=== PATIENT | female | born 1965 | race American Indian/Alaskan Native ===

== ENCOUNTER 2016-11-04 13:35 | Inpatient (IN) | payer OTHER ==
--- NOTE | 2016-11-04 13:56 | Emergency Department Report ---
Entered by PRASHANT MENDEZ, acting as scribe for RACQUEL SAMUELS NP. Chief Complaint: Nausea/Vomiting/Diarrhea Stated Complaint: N/V/D Time Seen by Provider: 11/04/16 13:47 - HPI History of Present Illness: 51 y/o non-toxic, non ill-appearing female in no acute distress presents to ED c /o nausea, vomiting since yesterday, noting it resolved at night but became worse this morning. Notes associated mild epigastric pain and chills with generalized weakness, but denies fever. - ROS Review of Systems: + nausea, vomiting, generalized weakness, chills, epigastric pain - fever - Exam Vital Signs: Vital Signs 11/04/16 13:39 Temperature 97.4 F L Pulse Rate 72 Respiratory 20 Rate Blood Pressure 189/102 O2 Sat by Pulse 100 Oximetry Physical Exam: Abdomen: Bowel Sounds normal x 4, no abdominal bruits auscultated. Non- distended. Epigastric pain to palpation. MSE screening note: Focused history and physical exam performed. Due to findings the following was ordered: CBC, CMP, UA, lipase, amylase, EKG, troponin ED Disposition for MSE Condition: Stable This documentation as recorded by the scribe,PRASHANT MENDEZ,accurately reflects the service I personally performed and the decisions made by ABRIL tan MARTIN, SON.
[2016-11-04 14:27] LABS: Hematocrit 20.6 % (30.3-42.9); Hemoglobin 6.4 gm/dl (10.1-14.3); Mean Corpuscular HGB Conc 31 % (30-34); Mean Corpuscular Hemoglobin 20 pg (28-32); Mean Corpuscular Volume 64 fl (79-97); Platelet Count 391 K/mm3 (140-440); Red Cell Distribution Width 21.5 % (13.2-15.2); White Blood Count 6.4 K/mm3 (4.5-11.0)
[2016-11-04 14:35] LABS: Amylase 42 units/L (27-131); Lipase 16 units/L (13-60)
[2016-11-04 14:39] LABS: Alanine Aminotransferase 8 units/L (7-56); Albumin 3.9 g/dL (3.9-5); Albumin/Globulin Ratio 1.1 %; Alkaline Phosphatase 52 units/L (35-129); Anion Gap 18 mmol/L; Blood Urea Nitrogen 5 mg/dL (7-17); Calcium 8.9 mg/dL (8.4-10.2); Carbon Dioxide 23 mmol/L (22-30); Chloride 101.6 mmol/L (98-107); Glucose 132 mg/dL (65-100); Potassium 4.2 mmol/L (3.6-5.0); Sodium 138 mmol/L (137-145); Total Protein 7.4 g/dL (6.3-8.2)
[2016-11-04 15:03] LABS: Basophils % (Manual) 0 % (0.0-1.8); Blastocytes % (Manual) 0 %; Eosinophils % (Manual) 0 % (0.0-4.3)
[2016-11-04 15:04] LABS: Anisocytosis 2+; Hypochromasia 2+; Microcytosis 1+; Tear Drop Cells Few
[2016-11-04 15:05] LABS: Diff Status Complete; Large Platelets 2+; Platelet Estimate Cons
[2016-11-04 19:32] LABS: Bilirubin,Urine NEG (Negative); Blood,Urine NEG (Negative); Ketones,Urine NEG (Negative); Leukocyte Esterase,Urine LG (Negative); Mucus,Urine FEW /HPF; Nitrite,Urine NEG (Negative); Protein,Urine <15 mg/dL mg/dL (Negative); Urobilinogen,Urine < 2.0 mg/dL (<2.0)
[2016-11-04] MEDS ORDERED: NACL 0.9% 500 ML 500 ML IV ONE (20:53)
[2016-11-04] MEDS ORDERED: ZOFRAN IV ONE (20:54)
--- NOTE | 2016-11-04 21:15 | Emergency Department Report ---
HPI - General Chief Complaint: Nausea/Vomiting/Diarrhea Time Seen by Provider: 11/04/16 20:36 - HPI HPI: This is a 51-year-old Afro-[place]aur[place] female who presents the emergency department from home with complaint of a 2 day history of nausea, vomiting and some generalized weakness and fatigue. The patient says she's been having a lot of stress in her life lately as she is taking care of her mother who is dealing with advanced dementia. She presents with some very elevated blood pressure but denies any history of hypertension. She has a primary care doctor but has not seen them regarding her symptoms. She has not taken anything for her symptoms prior to presentation. She has a history of [id number] diabetes and says she is compliant with her metformin and glipizide. No recent travel or sick contacts at home. ED Past Medical Hx - Past Medical History Previous Medical History?: Yes Hx Diabetes: Yes (FOR 5 YRS) - Social History Smoking Status: Never Smoker Substance Use Type: Prescribed - Medications Home Medications: Home Medications Medication Instructions Recorded Confirmed Last Taken Type Metformin HCl [Glucophage] 1,000 mg PO BID 07/14/14 11/04/16 11/03/16 History glipiZIDE [glipiZIDE XL] 10 mg PO QDAY 07/14/14 11/04/16 11/03/16 History ED Review of Systems ROS: Stated complaint: N/V/D Other details as noted in HPI Constitutional: weakness. denies: fever Eyes: denies: eye pain, eye discharge, vision change ENT: denies: ear pain, throat pain Respiratory: denies: cough, shortness of breath, wheezing Cardiovascular: denies: chest pain, palpitations Gastrointestinal: nausea, vomiting Genitourinary: denies: urgency, dysuria, discharge Musculoskeletal: denies: back pain, joint swelling, arthralgia Skin: denies: rash, lesions Neurological: denies: headache, numbness Physical Exam - Physical Exam Vital Signs: Vital Signs 11/04/16 13:39 Temperature 97.4 F L Pulse Rate 72 Respiratory 20 Rate Blood Pressure 189/102 O2 Sat by Pulse 100 Oximetry Physical Exam: GENERAL: The patient is well-developed well-nourished. HEENT: Normocephalic. Atraumatic. Extraocular motions are intact. Patient has moist mucous membranes. Pupils equal reactive to light bilaterally. NECK: Supple. Trachea is midline. CHEST/LUNGS: Clear to auscultation. There is no respiratory distress noted. HEART/CARDIOVASCULAR: Regular. There is no tachycardia. There is no gallop rub or murmur. ABDOMEN: Abdomen is soft, nontender. Patient has normal bowel sounds. There is no abdominal distention. SKIN: Skin is warm and dry. NEURO: The patient is awake, alert, and oriented. The patient is cooperative. The patient has no focal neurologic deficits. The patient has normal speech. Cranial nerves II through XII grossly intact. MUSCULOSKELETAL: There is no tenderness or deformity. There is no limitation range of motion. There is no evidence of acute injury. ED Course Vital Signs 11/04/16 13:39 Temperature 97.4 F L Pulse Rate 72 Respiratory 20 Rate Blood Pressure 189/102 O2 Sat by Pulse 100 Oximetry ED Medical Decision Making - Lab Data Result diagrams: 11/04/16 14:04 11/04/16 14:04 - EKG Data -: EKG Interpreted by Wi EKG shows normal: sinus rhythm, axis, intervals, QRS complexes, ST-T waves Rate: normal - EKG Data When compared to previous EKG there are: previous EKG unavailable Interpretation: normal EKG - Medical Decision Making 51 Year old female presents with 2 day history of nausea, vomiting, generalized weakness and fatigue. EKG is normal without ST elevation DC, ischemia or dysrhythmia. Patient's labs show a hemoglobin of 6.4. Patient has no previous history of any anemia. With her symptoms it appears to be symptomatic anemia. She denies any bleeding. She also presented with some very elevated blood pressure. It came down to a more reasonable level without any antihypertensives but still is considered to be hypertension. She will be admitted to the hospital to receive 2 units of packed red blood cells and have further evaluation of her anemia and symptoms. She's been accepted for admission by the hospitalist, Dr. Deleon. - Differential Diagnosis iron deficiency, B12 deficiency, hypoglycemia, viral syndrome Critical Care Time: No Critical care attestation.: If time is entered above; I have spent that time in minutes in the direct care of this critically ill patient, excluding procedure time. ED Disposition Clinical Impression: Hypertensive urgency, Symptomatic anemia Nausea and vomiting Qualifiers: Vomiting type: unspecified Vomiting Intractability: non-intractable Qualified Code(s): R11.2 - Nausea with vomiting, unspecified Disposition: OP ADMITTED IP TO THIS HOSP Is pt being admited?: Yes Condition: Stable Referrals: PRIMARY CARE,MD [Primary Care Provider] - 3-5 Days Time of Disposition: 21:49
[2016-11-04] MEDS ORDERED: APRESOLINE IV ONE (21:50)
[2016-11-04] MEDS ORDERED: MILK OF MAGNESIA PO PRN (23:00)
[2016-11-04] MEDS ORDERED: TYLENOL PO PRN (23:00)
[2016-11-04] MEDS ORDERED: DULCOLAX PR PRN (23:00)
[2016-11-04] MEDS ORDERED: D50W (25GM) IV PRN (23:00)
--- NOTE | 2016-11-04 23:04 | History and Physical Report ---
History of Present Illness Date of examination: 11/04/16 History of present illness: 51-year-old woman with a history of diabetes, menorrhagia comes emergency room with complaints of dizziness, generalized weakness, nausea vomiting 2 weeks. No blood in stool, hematemesis Patient denies chest pain, palpitation, shortness of breath, cough, abdominal pain, hematochezia, dysuria, frequency, focal weakness, dysarthria, fever chills , polydipsia polyuria, hot or cold intolerance, easy bruisability, or rash or bleeding from mucosal membrane, rhinorrhea, epistaxis, earache, tinnitus, blurry vision, eye discharge, anxiety, depression. Other review of systems negative PAST SURGICAL HISTORY: SOCIAL HISTORY: Denies alcohol, tobacco, drugs FAMILY HISTORY: Hypertension Medications and Allergies Allergies Allergy/AdvReac Type Severity Reaction Status Date / Time No Known Allergies Allergy Unverified 07/14/14 11:12 Home Medications Medication Instructions Recorded Confirmed Last Taken Type Metformin HCl [Glucophage] 1,000 mg PO BID 07/14/14 11/04/16 11/03/16 History glipiZIDE [glipiZIDE XL] 10 mg PO QDAY 07/14/14 11/04/16 11/03/16 History Exam - Physical Exam Narrative exam: Gen. appearance: Patient lying in bed, no apparent distress HEENT: Normocephalic, atraumatic, pupils equally round and reactive to light, extraocular movement intact, and no sclericterus,. No JVD or thyromegaly or nodule,neck supple, no carotid bruit ,mucous membranes moist, no exudate or erythema Heart: S1, S2, regular rate and rhythm Lungs: Clear to auscultation bilaterally, breathing comfortable Abdomen: Positive bowel sounds, nontender, nondistended, no organomegaly Extremity: No edema, cyanosis, clubbing Skin: No rash, nodules, warm, dry Neuro: Oriented 3, cranial nerves II-12 intact, speech is fluent, motor and sensory intact Rectal: brown stool. heme negative - Constitutional Vitals: Temp Pulse Resp BP Pulse Ox 97.4 F L 87 20 143/65 100 11/04/16 13:39 11/04/16 22:00 11/04/16 22:00 11/04/16 22:00 11/04/16 22:00 Results - Labs CBC & Chem 7: 11/04/16 14:04 11/04/16 14:04 Labs: Abnormal lab results 11/04/16 11/04/16 11/04/16 Range/Units 14:04 14:04 19:02 RBC 3.20 L (3.65-5.03) M/mm3 Hgb 6.4 L (10.1-14.3) gm/dl Hct 20.6 L (30.3-42.9) % MCV 64 L (79-97) fl MCH 20 L (28-32) pg RDW 21.5 H (13.2-15.2) % Lymphocytes % (Manual) 44.0 H (13.4-35.0) % BUN 5 L (7-17) mg/dL Creatinine 0.5 L (0.7-1.2) mg/dL Glucose 132 H (65-100) mg/dL Urine WBC (Auto) 7.0 H (0.0-6.0) /HPF Crossmatch 11/04/16 Range/Units 21:05 RBC (3.65-5.03) M/mm3 Hgb (10.1-14.3) gm/dl Hct (30.3-42.9) % MCV (79-97) fl MCH (28-32) pg RDW (13.2-15.2) % Lymphocytes % (Manual) (13.4-35.0) % BUN (7-17) mg/dL Creatinine (0.7-1.2) mg/dL Glucose (65-100) mg/dL Urine WBC (Auto) (0.0-6.0) /HPF Crossmatch See Detail - Imaging and Cardiology EKG: image reviewed Assessment and Plan Symptomatic anemia Diabetes type 2 Admits medicine Transfuse 2 units of blood, check iron studies Check fingersticks initiate insulin sliding scale DVT prophylaxis with SCD
[2016-11-05] MEDS ORDERED: NACL 0.9% 500 ML 500 ML ONE (00:06)
[2016-11-05 07:56] LABS: Hematocrit 26.3 % (30.3-42.9); Hemoglobin 8.5 gm/dl (10.1-14.3); Mean Corpuscular HGB Conc 32 % (30-34); Platelet Count 307 K/mm3 (140-440); Red Blood Count 3.82 M/mm3 (3.65-5.03); White Blood Count 6.8 K/mm3 (4.5-11.0)
[2016-11-05 07:57] LABS: Mean Corpuscular Hemoglobin 22 pg (28-32); Mean Corpuscular Volume 69 fl (79-97); Red Cell Distribution Width 26.2 % (13.2-15.2)
[2016-11-05 08:03] LABS: Anion Gap 16 mmol/L; Blood Urea Nitrogen 5 mg/dL (7-17); Calcium 8.7 mg/dL (8.4-10.2); Carbon Dioxide 23 mmol/L (22-30); Chloride 106.1 mmol/L (98-107); Glucose 102 mg/dL (65-100); Potassium 3.8 mmol/L (3.6-5.0); Sodium 141 mmol/L (137-145)
[2016-11-05] MEDS: NOVOLOG SUB-Q SCH ×4 (08:27→23:00)
[2016-11-05 08:53] LABS: Blastocytes % (Manual) 0 %
[2016-11-05 08:54] LABS: Anisocytosis 2+; Diff Status Complete; Elliptocytes Few; Hypochromasia 2+; Microcytosis 1+; Ovalocytes 1+; Polychromasia Few; Tear Drop Cells Few
--- NOTE | 2016-11-05 09:01 | Discharge Summary ---
Providers - Providers Date of Admission: 11/04/16 23:00 Date of discharge: 11/08/16 Attending physician: GLADYS RUBIN Primary care physician: ULYSSES BOOTHE MD Hospitalization Condition: Fair Hospital course: Patient is 51 yo with hypertension.. She presented with menorrhagia, generalized weakness, abdominal pain , nausea and vomiting. her hemoglobin was 6.4. She was admitted transfused 2 Units PRBC, given iv fluids for gastroenteritis. She was about to be discharged when she complained of more abdominal pain. CT Abdomen showed thickening of esophagus. Pelvic Ultrasound showed fibroids. GI was consulted and EGD was done. EGD showed hiatal hernia, gastritis and esophagitis. She was subsequently discharged home on 11/08/16. Total time spent on discharge, 33 mins Disposition: DISCHARGED TO HOME OR SELFCARE - Discharge Diagnoses (1) Menorrhagia Status: Chronic Qualifiers: Menorrahagia type: M (2) Anemia due to chronic blood loss Status: Acute (3) Symptomatic anemia Status: Acute (4) Acute gastroenteritis Status: Acute (5) Gastritis Status: Acute Qualifiers: Gastritis type: G Chronicity: C Gastritis bleeding: G (6) Esophagitis Status: Acute (7) Hiatal hernia Status: Acute (8) Fibroids Status: Acute Qualifiers: Uterine leiomyoma location: U Core Measure Documentation - Palliative Care Palliative Care/ Comfort Measures: Not Applicable - Core Measures Any of the following diagnoses?: none Exam - Physical Exam Narrative exam: Gen appearance: Not in acute distress HEENT: Normocephalic, atraumatic Neck:supple, No JVD Lungs : Clear to auscultation bilaterally,no rales or wheezing Heart :S1-S2 regular, no murmurs, rubs or gallop Abdomen: soft, non tender, non-distended,normal bowel sounds Extremities:no edema no clubbing or cyanosis, Neuro: Awake alert oriented 3, no focal neurologic signs - Constitutional Vitals: Temp Pulse Resp BP Pulse Ox 98.9 F 65 20 154/86 100 11/05/16 07:00 11/05/16 07:00 11/05/16 07:00 11/05/16 07:00 11/05/16 07:00 Plan Activity: no restrictions Diet: low fat, low cholesterol Additional Instructions: 1.Follow up with PCP in 1 week. 2.Follow up with Gynecology in 2-3 days Follow up with: PRIMARY CAREMD [Primary Care Provider] - 3-5 Days Prescriptions: Ciprofloxacin HCl [Ciprofloxacin TAB] 500 mg PO BID #6 tablet Docusate Sodium [Colace] 100 mg PO BID #60 capsule Famotidine [Pepcid] 20 mg PO BID #60 tablet Ferrous Sulfate [Feosol 325 MG tab] 325 mg PO BID #60 tablet HYDROcodone/APAP 5-325 [Holden 5/325] 1 each PO Q6HR PRN #10 tablet PRN Reason: Pain Pantoprazole [Protonix] 40 mg PO QDAY #30 tablet Promethazine [Phenergan TAB] 25 mg PO Q6HR PRN #20 tab PRN Reason: Nausea or vomiting
[2016-11-05] MEDS: GLUCOTROL XL PO SCH (09:57)
[2016-11-05] MEDS ORDERED: GLUCOPHAGE PO SCH (10:00)
--- NOTE | 2016-11-05 10:41 | Admit Criteria Form ---
Admission Criteria Documentation: ANEMIA, IRON DEFICIENCY OR UNSPECIFIED Clinical Indications for Inpatient Care (Place 'X' for any and all applicable criteria): Admission is indicated for ANY ONE of the following(1)(2)(3)(4)(5)(6)(7): [X] I. Inpatient admission required rather than observation care (Also use Anemia, Iron Deficiency or Unspecified: Observation Care guideline as appropriate) because of ANY ONE of the following: [] a) Hemodynamic instability that is severe or persistent [] b) Active bleeding that cannot be rapidly controlled [] c) CVS symptoms (i.e., dyspnea, chest pain, heart failure) that are severe or persistent [] d) Neurologic symptoms (i.e., cognitive impairment, recurrent syncope or near syncope) that are severe or persistent [] e) Cardiac arrhythmias of immediate concern [] f) Acute peripheral ischemia (e.g., pulseless, cool, mottled, or cyanotic extremity) [] g) High-risk low platelet count [] h) Acute renal failure [] i) Ongoing transfusion for blood loss (greater than 2 units) [] j) IV fluid to replace significant ongoing (eg, >24 hours) losses (> 3 L/m2 per day) [] k) Pulmonary artery catheter monitoring [] l) Supplemental oxygen or respiratory treatments for over 24 hours that are performable only in acute inpatient setting [] m) Immediate inpatient surgery [X] n) Other condition, treatment or monitoring requiring inpatient admission [] II Active massive hemorrhage [] III. Active hemolysis with rapidly progressive anemia [A](6) Extended stay beyond goal length of stay may be needed for (17)(18) []a) Diagnosed cause of anemia requiring longer hospitalization (eg, active GI bleeding, immune hemolysis requiring electrophoresis, complications of malignancy requiring acute care []b) Continued emergent anemia indicators (23) []c) Transfusion reactions []d) Associated leukopenia or thrombocytopenia needing inpatient care []e) Active comorbidities (eg, renal failure, heart failure) The original [facility] Care Guidelines content created by [facility] Care Guidelines has been revised. The portions of the content which have been revised are identified through the use of italic text or in bold. [facility] Guidelines has neither reviewed nor approved the modified material. All other unmodified content is copyright [facility] Care Guidelines. Please see references footnoted in the original [facility] edition 2016 Admission Criteria Met: Yes
[2016-11-05] MEDS ORDERED: MORPHINE IV ONE (11:10)
[2016-11-05] MEDS: LEVAQUIN 500MG/100ML 500 MG/100 ML BAG IV SCH (13:45)
[2016-11-05 14:48] LABS: Iron 60 ug/dL (37-170); Total Iron Binding Capacity 332 mcg/dL (250-450)
[2016-11-05] MEDS: PROTONIX IV SCH ×2 (15:11→21:27)
--- NOTE | 2016-11-05 15:25 | Progress Note ---
Assessment and Plan Assessment and plan: Acute gastroenteritis. Started on iv fluids. Morphine iv prn Anemia likely due to chronic blood loss from Menorrhagia. To see Gyne as outpatient.s/p 2 Units PRBC transfused, Hgb now Menorrhagia. US pelvis, transvaginal US ordered, not yet done. UTI. Levaquin iv Diabetes mellitus type 2. Fingerstick Qac and HS - Patient Problems (1) Menorrhagia Current Visit: Yes Status: Acute Qualifiers: Menorrahagia type: M (2) Anemia due to chronic blood loss Current Visit: Yes Status: Acute (3) Symptomatic anemia Current Visit: Yes Status: Acute History Interval history: Abdominal pain, nausea and vomiting, menorrhagia Hospitalist Physical - Physical exam Narrative exam: Gen appearance: Not in acute distress HEENT: Normocephalic, atraumatic Neck:supple Lungs : Clear to auscultation bilaterally, Heart :S1-S2 regular, no murmurs, rubs or gallop Abdomen: soft, mild tender, non-distended,normal bowel sounds Extremities:no edema no clubbing or cyanosis, Neuro: Awake alert oriented 3, no focal neurologic signs - Constitutional Vitals: Temp Pulse Resp BP Pulse Ox 98.9 F 65 20 154/86 100 11/05/16 07:00 11/05/16 07:00 11/05/16 07:00 11/05/16 07:00 11/05/16 07:00 Results - Labs CBC & Chem 7: 11/05/16 19:52 11/05/16 07:24 Labs: Laboratory Last Values WBC 6.8 K/mm3 (4.5-11.0) 11/05/16 07:24 RBC 3.82 M/mm3 (3.65-5.03) 11/05/16 07:24 Hgb 8.5 gm/dl (10.1-14.3) L 11/05/16 07:24 Hct 26.3 % (30.3-42.9) L 11/05/16 07:24 MCV 69 fl (79-97) L D 11/05/16 07:24 MCH 22 pg (28-32) L 11/05/16 07:24 MCHC 32 % (30-34) 11/05/16 07:24 RDW 26.2 % (13.2-15.2) H 11/05/16 07:24 Plt Count 307 K/mm3 (140-440) 11/05/16 07:24 Add Manual Diff Complete 11/05/16 07:24 Total Counted 100 11/05/16 07:24 Seg Neuts % (Manual) 56.0 % (40.0-70.0) 11/05/16 07:24 Band Neutrophils % 0 % 11/05/16 07:24 Lymphocytes % (Manual) 38.0 % (13.4-35.0) H 11/05/16 07:24 Reactive Lymphs % (Man) 0 % 11/05/16 07:24 Monocytes % (Manual) 4.0 % (0.0-7.3) 11/05/16 07:24 Eosinophils % (Manual) 1.0 % (0.0-4.3) 11/05/16 07:24 Basophils % (Manual) 1.0 % (0.0-1.8) 11/05/16 07:24 Metamyelocytes % 0 % 11/05/16 07:24 Myelocytes % 0 % 11/05/16 07:24 Promyelocytes % 0 % 11/05/16 07:24 Blast Cells % 0 % 11/05/16 07:24 Nucleated RBC % Not Reportable 11/05/16 07:24 Seg Neutrophils # Man 3.8 K/mm3 (1.8-7.7) 11/05/16 07:24 Band Neutrophils # 0.0 K/mm3 11/05/16 07:24 Lymphocytes # (Manual) 2.6 K/mm3 (1.2-5.4) 11/05/16 07:24 Abs React Lymphs (Man) 0.0 K/mm3 11/05/16 07:24 Monocytes # (Manual) 0.3 K/mm3 (0.0-0.8) 11/05/16 07:24 Eosinophils # (Manual) 0.1 K/mm3 (0.0-0.4) 11/05/16 07:24 Basophils # (Manual) 0.1 K/mm3 (0.0-0.1) 11/05/16 07:24 Metamyelocytes # 0.0 K/mm3 11/05/16 07:24 Myelocytes # 0.0 K/mm3 11/05/16 07:24 Promyelocytes # 0.0 K/mm3 11/05/16 07:24 Blast Cells # 0.0 K/mm3 11/05/16 07:24 WBC Morphology Not Reportable 11/05/16 07:24 Hypersegmented Neuts Not Reportable 11/05/16 07:24 Hyposegmented Neuts Not Reportable 11/05/16 07:24 Hypogranular Neuts Not Reportable 11/05/16 07:24 Smudge Cells Not Reportable 11/05/16 07:24 Toxic Granulation Not Reportable 11/05/16 07:24 Toxic Vacuolation Not Reportable 11/05/16 07:24 Dohle Bodies Not Reportable 11/05/16 07:24 Pelger-Huet Anomaly Not Reportable 11/05/16 07:24 Harini Rods Not Reportable 11/05/16 07:24 Platelet Estimate Appears normal 11/05/16 07:24 Clumped Platelets Not Reportable 11/05/16 07:24 Plt Clumps, EDTA Not Reportable 11/05/16 07:24 Large Platelets Not Reportable 11/05/16 07:24 Giant Platelets Not Reportable 11/05/16 07:24 Platelet Satelliting Not Reportable 11/05/16 07:24 Plt Morphology Comment Not Reportable 11/05/16 07:24 RBC Morphology Not Reportable 11/05/16 07:24 Dimorphic RBCs Yes 11/05/16 07:24 Polychromasia Few 11/05/16 07:24 Hypochromasia 2+ 11/05/16 07:24 Poikilocytosis Not Reportable 11/05/16 07:24 Anisocytosis 2+ 11/05/16 07:24 Microcytosis 1+ 11/05/16 07:24 Macrocytosis Not Reportable 11/05/16 07:24 Spherocytes Not Reportable 11/05/16 07:24 Pappenheimer Bodies Not Reportable 11/05/16 07:24 Sickle Cells Not Reportable 11/05/16 07:24 Target Cells Not Reportable 11/05/16 07:24 Tear Drop Cells Few 11/05/16 07:24 Ovalocytes 1+ 11/05/16 07:24 Helmet Cells Not Reportable 11/05/16 07:24 [place] Bodies Not Reportable 11/05/16 07:24 [place] Rings Not Reportable 11/05/16 07:24 Regis Cells Not Reportable 11/05/16 07:24 Bite Cells Not Reportable 11/05/16 07:24 Crenated Cell Not Reportable 11/05/16 07:24 Elliptocytes Few 11/05/16 07:24 Acanthocytes (Spur) Not Reportable 11/05/16 07:24 Rouleaux Not Reportable 11/05/16 07:24 Hemoglobin C Crystals Not Reportable 11/05/16 07:24 Schistocytes Not Reportable 11/05/16 07:24 Malaria parasites Not Reportable 11/05/16 07:24 Adrian Bodies Not Reportable 11/05/16 07:24 Hem Pathologist Commnt No 11/05/16 07:24 Sodium 141 mmol/L (137-145) 11/05/16 07:24 Potassium 3.8 mmol/L (3.6-5.0) 11/05/16 07:24 Chloride 106.1 mmol/L (98-107) 11/05/16 07:24 Carbon Dioxide 23 mmol/L (22-30) 11/05/16 07:24 Anion Gap 16 mmol/L 11/05/16 07:24 BUN 5 mg/dL (7-17) L 11/05/16 07:24 Creatinine 0.5 mg/dL (0.7-1.2) L 11/05/16 07:24 Estimated GFR > 60 ml/min 11/05/16 07:24 BUN/Creatinine Ratio 10.00 % 11/05/16 07:24 Glucose 102 mg/dL (65-100) H 11/05/16 07:24 POC Glucose 130 (70-105) H 11/05/16 11:55 Hemoglobin A1c 7.5 % (4-6) H 11/05/16 13:41 Calcium 8.7 mg/dL (8.4-10.2) 11/05/16 07:24 Iron 60 ug/dL (37-170) 11/05/16 13:41 TIBC 332 mcg/dL (250-450) 11/05/16 13:41 Ferritin 5.6 ng/mL (13.0-400.0) L 11/05/16 13:41 Total Bilirubin 0.30 mg/dL (0.1-1.2) 11/04/16 14:04 AST 12 units/L (5-40) 11/04/16 14:04 ALT 8 units/L (7-56) 11/04/16 14:04 Alkaline Phosphatase 52 units/L (35-129) 11/04/16 14:04 Troponin T < 0.010 ng/mL (0.00-0.029) 11/04/16 14:04 Total Protein 7.4 g/dL (6.3-8.2) 11/04/16 14:04 Albumin 3.9 g/dL (3.9-5) 11/04/16 14:04 Albumin/Globulin Ratio 1.1 % 11/04/16 14:04 Amylase 42 units/L (27-131) 11/04/16 14:04 Lipase 16 units/L (13-60) 11/04/16 14:04 Urine Color Yellow (Yellow) 11/04/16 19:02 Urine Turbidity Clear (Clear) 11/04/16 19:02 Urine pH 7.0 (5.0-7.0) 11/04/16 19:02 Ur Specific [place] 1.010 (1.003-1.030) 11/04/16 19:02 Urine Protein <15 mg/dl mg/dL (Negative) 11/04/16 19:02 Urine Glucose (UA) Neg mg/dL (Negative) 11/04/16 19:02 Urine Ketones Neg mg/dL (Negative) 11/04/16 19:02 Urine Blood Neg (Negative) 11/04/16 19:02 Urine Nitrite Neg (Negative) 11/04/16 19:02 Urine Bilirubin Neg (Negative) 11/04/16 19:02 Urine Urobilinogen < 2.0 mg/dL (<2.0) 11/04/16 19:02 Ur Leukocyte Esterase Lg (Negative) 11/04/16 19:02 Urine WBC (Auto) 7.0 /HPF (0.0-6.0) H 11/04/16 19:02 Urine RBC (Auto) 2.0 /HPF (0.0-6.0) 11/04/16 19:02 U Epithel Cells (Auto) 1.0 /HPF (0-13.0) 11/04/16 19:02 Urine Mucus Few /HPF 11/04/16 19:02 Blood Type O POSITIVE 11/04/16 21:05 Antibody Screen TNR 11/04/16 21:05 UZIEL Antibody Screen Negative 11/04/16 21:05 Crossmatch See Detail 11/04/16 21:05
[2016-11-05] MEDS ORDERED: NACL ONE (15:32)
--- NOTE | 2016-11-05 16:15 | Cat Scan Report ---
CT ABDOMEN AND PELVIS WITH CONTRAST INDICATION: Abdominal pain. COMPARISON: None similar. FINDINGS: Abdomen and pelvis CT performed following oral contrast and intravenous administration of 100 cc of Omnipaque 300. LUNG BASES: Top normal heart size. Minimal bibasilar effusions, right slightly greater than left as on axial image 89, series 2. Nonspecific distal esophageal wall prominence/thickening, not excluded for gastroesophageal reflux and/or hiatal hernia, amongst others. ABDOMEN: Cholecystectomy clips. Left hepatic lobe tip extends well into the left upper quadrant. Liver, spleen, pancreas, adrenals, nonaneurysmal abdominal aorta, IVC and kidneys otherwise within normal limits bilaterally without hydronephrosis, ascites or size significant adenopathy. Opacified GI tract nonobstructive. Normal appendix. Liquid stool in the ascending colon incidentally noted. PELVIS: Slightly heterogeneous, prominent uterus, approximately 13.5 cm in length. Pelvic ultrasound may help further evaluate, if warranted. Unremarkable urinary bladder and the rectosigmoid. Approximately 2.2 cm right adnexal/ovarian follicular cyst. Small deep pelvic/presacral fluid measuring 18 HU with at least 2 small intrinsic nonspecific densities. No significant adenopathy. Mild multilevel degenerative spurring, more so lower thoracic. L5-S1 facet arthropathy. Bilateral SI joint degenerative spurring and mild sclerosis as well. CONCLUSION: Various incidental findings, including minimal bibasilar pleural effusions, cholecystectomy, ascending colon liquid stool/possibly gastroenteritis, prominent/enlarged uterus and small deep pelvic/presacral fluid, amongst others, as described. Please correlate. Thank you for the opportunity to participate in this patient's care.
[2016-11-05] MEDS ORDERED: MORPHINE IV PRN (17:45)
[2016-11-05 21:21] LABS: Hematocrit 27.7 % (30.3-42.9); Hemoglobin 8.7 gm/dl (10.1-14.3)
[2016-11-05] MEDS: ZOFRAN IV PRN (21:27)
[2016-11-05] MEDS: NACL 0.9% 1000 ML 1,000 ML IV SCH (21:30)
[2016-11-06] MEDS: NOVOLOG SUB-Q SCH ×4 (07:43→22:30)
--- NOTE | 2016-11-06 08:52 | Event Note ---
Date: 11/06/16 patient with nausea, vomiting, abdominal pain. Was to discharge today, now vomited again this morning. Will consult GI
[2016-11-06] MEDS: LEVAQUIN 500MG/100ML 500 MG/100 ML BAG IV SCH (10:12)
[2016-11-06] MEDS: PROTONIX PO SCH ×2 (10:12→22:29)
[2016-11-06] MEDS: GLUCOTROL XL PO SCH (10:12)
[2016-11-06] MEDS: ZOFRAN IV PRN (10:19)
[2016-11-06] MEDS: NACL 0.9% 1000 ML 1,000 ML IV SCH (10:22)
--- NOTE | 2016-11-06 11:59 | Progress Note ---
Assessment and Plan Assessment and plan: Acute gastroenteritis. Continue iv fluids. Morphine iv prn Nausea and Vomiting possibly from GERD, esophagitis, gastroenteritis. Consult GI to evaluate since vomited again today Anemia likely due to chronic blood loss from Menorrhagia. To see Gyne as outpatient.s/p 2 Units PRBC transfused, Hgb now 8.7 Uterine fibroids. Multiple. To follow with Gyne as outpatient. Menorrhagia. US pelvis, transvaginal shows multiple fibroids. UTI. Continue Levaquin iv Diabetes mellitus type 2. Fingerstick Qac and HS - Patient Problems (1) Menorrhagia Current Visit: Yes Status: Acute Qualifiers: Menorrahagia type: M (2) Anemia due to chronic blood loss Current Visit: Yes Status: Acute (3) Symptomatic anemia Current Visit: Yes Status: Acute History Interval history: Abdominal pain, still having nausea and vomiting, menorrhagia Hospitalist Physical - Physical exam Narrative exam: Gen appearance: Not in acute distress HEENT: Normocephalic, atraumatic Neck:supple Lungs : Clear to auscultation bilaterally, Heart :S1-S2 regular, no murmurs, rubs or gallop Abdomen: soft, mild epigastric tender, non-distended,normal bowel sounds Extremities:no edema no clubbing or cyanosis, Neuro: Awake alert oriented 3, no focal neurologic signs - Constitutional Vitals: Temp Pulse Resp BP Pulse Ox 99.4 F 61 16 137/65 99 11/06/16 07:25 11/06/16 07:25 11/06/16 07:25 11/06/16 07:25 11/06/16 07:25 Results - Labs CBC & Chem 7: 11/05/16 19:52 11/05/16 07:24 Labs: Laboratory Last Values WBC 6.8 K/mm3 (4.5-11.0) 11/05/16 07:24 RBC 3.82 M/mm3 (3.65-5.03) 11/05/16 07:24 Hgb 8.7 gm/dl (10.1-14.3) L 11/05/16 19:52 Hct 27.7 % (30.3-42.9) L 11/05/16 19:52 MCV 69 fl (79-97) L D 11/05/16 07:24 MCH 22 pg (28-32) L 11/05/16 07:24 MCHC 32 % (30-34) 11/05/16 07:24 RDW 26.2 % (13.2-15.2) H 11/05/16 07:24 Plt Count 307 K/mm3 (140-440) 11/05/16 07:24 Add Manual Diff Complete 11/05/16 07:24 Total Counted 100 11/05/16 07:24 Seg Neuts % (Manual) 56.0 % (40.0-70.0) 11/05/16 07:24 Band Neutrophils % 0 % 11/05/16 07:24 Lymphocytes % (Manual) 38.0 % (13.4-35.0) H 11/05/16 07:24 Reactive Lymphs % (Man) 0 % 11/05/16 07:24 Monocytes % (Manual) 4.0 % (0.0-7.3) 11/05/16 07:24 Eosinophils % (Manual) 1.0 % (0.0-4.3) 11/05/16 07:24 Basophils % (Manual) 1.0 % (0.0-1.8) 11/05/16 07:24 Metamyelocytes % 0 % 11/05/16 07:24 Myelocytes % 0 % 11/05/16 07:24 Promyelocytes % 0 % 11/05/16 07:24 Blast Cells % 0 % 11/05/16 07:24 Nucleated RBC % Not Reportable 11/05/16 07:24 Seg Neutrophils # Man 3.8 K/mm3 (1.8-7.7) 11/05/16 07:24 Band Neutrophils # 0.0 K/mm3 11/05/16 07:24 Lymphocytes # (Manual) 2.6 K/mm3 (1.2-5.4) 11/05/16 07:24 Abs React Lymphs (Man) 0.0 K/mm3 11/05/16 07:24 Monocytes # (Manual) 0.3 K/mm3 (0.0-0.8) 11/05/16 07:24 Eosinophils # (Manual) 0.1 K/mm3 (0.0-0.4) 11/05/16 07:24 Basophils # (Manual) 0.1 K/mm3 (0.0-0.1) 11/05/16 07:24 Metamyelocytes # 0.0 K/mm3 11/05/16 07:24 Myelocytes # 0.0 K/mm3 11/05/16 07:24 Promyelocytes # 0.0 K/mm3 11/05/16 07:24 Blast Cells # 0.0 K/mm3 11/05/16 07:24 WBC Morphology Not Reportable 11/05/16 07:24 Hypersegmented Neuts Not Reportable 11/05/16 07:24 Hyposegmented Neuts Not Reportable 11/05/16 07:24 Hypogranular Neuts Not Reportable 11/05/16 07:24 Smudge Cells Not Reportable 11/05/16 07:24 Toxic Granulation Not Reportable 11/05/16 07:24 Toxic Vacuolation Not Reportable 11/05/16 07:24 Dohle Bodies Not Reportable 11/05/16 07:24 Pelger-Huet Anomaly Not Reportable 11/05/16 07:24 Harini Rods Not Reportable 11/05/16 07:24 Platelet Estimate Appears normal 11/05/16 07:24 Clumped Platelets Not Reportable 11/05/16 07:24 Plt Clumps, EDTA Not Reportable 11/05/16 07:24 Large Platelets Not Reportable 11/05/16 07:24 Giant Platelets Not Reportable 11/05/16 07:24 Platelet Satelliting Not Reportable 11/05/16 07:24 Plt Morphology Comment Not Reportable 11/05/16 07:24 RBC Morphology Not Reportable 11/05/16 07:24 Dimorphic RBCs Yes 11/05/16 07:24 Polychromasia Few 11/05/16 07:24 Hypochromasia 2+ 11/05/16 07:24 Poikilocytosis Not Reportable 11/05/16 07:24 Anisocytosis 2+ 11/05/16 07:24 Microcytosis 1+ 11/05/16 07:24 Macrocytosis Not Reportable 11/05/16 07:24 Spherocytes Not Reportable 11/05/16 07:24 Pappenheimer Bodies Not Reportable 11/05/16 07:24 Sickle Cells Not Reportable 11/05/16 07:24 Target Cells Not Reportable 11/05/16 07:24 Tear Drop Cells Few 11/05/16 07:24 Ovalocytes 1+ 11/05/16 07:24 Helmet Cells Not Reportable 11/05/16 07:24 [place] Bodies Not Reportable 11/05/16 07:24 [place] Rings Not Reportable 11/05/16 07:24 Regis Cells Not Reportable 11/05/16 07:24 Bite Cells Not Reportable 11/05/16 07:24 Crenated Cell Not Reportable 11/05/16 07:24 Elliptocytes Few 11/05/16 07:24 Acanthocytes (Spur) Not Reportable 11/05/16 07:24 Rouleaux Not Reportable 11/05/16 07:24 Hemoglobin C Crystals Not Reportable 11/05/16 07:24 Schistocytes Not Reportable 11/05/16 07:24 Malaria parasites Not Reportable 11/05/16 07:24 Adrian Bodies Not Reportable 11/05/16 07:24 Hem Pathologist Commnt No 11/05/16 07:24 Sodium 141 mmol/L (137-145) 11/05/16 07:24 Potassium 3.8 mmol/L (3.6-5.0) 11/05/16 07:24 Chloride 106.1 mmol/L (98-107) 11/05/16 07:24 Carbon Dioxide 23 mmol/L (22-30) 11/05/16 07:24 Anion Gap 16 mmol/L 11/05/16 07:24 BUN 5 mg/dL (7-17) L 11/05/16 07:24 Creatinine 0.5 mg/dL (0.7-1.2) L 11/05/16 07:24 Estimated GFR > 60 ml/min 11/05/16 07:24 BUN/Creatinine Ratio 10.00 % 11/05/16 07:24 Glucose 102 mg/dL (65-100) H 11/05/16 07:24 POC Glucose 115 (70-105) H 11/06/16 11:46 Hemoglobin A1c 7.5 % (4-6) H 11/05/16 13:41 Calcium 8.7 mg/dL (8.4-10.2) 11/05/16 07:24 Iron 60 ug/dL (37-170) 11/05/16 13:41 TIBC 332 mcg/dL (250-450) 11/05/16 13:41 Ferritin 5.6 ng/mL (13.0-400.0) L 11/05/16 13:41 Total Bilirubin 0.30 mg/dL (0.1-1.2) 11/04/16 14:04 AST 12 units/L (5-40) 11/04/16 14:04 ALT 8 units/L (7-56) 11/04/16 14:04 Alkaline Phosphatase 52 units/L (35-129) 11/04/16 14:04 Troponin T < 0.010 ng/mL (0.00-0.029) 11/04/16 14:04 Total Protein 7.4 g/dL (6.3-8.2) 11/04/16 14:04 Albumin 3.9 g/dL (3.9-5) 11/04/16 14:04 Albumin/Globulin Ratio 1.1 % 11/04/16 14:04 Amylase 42 units/L (27-131) 11/04/16 14:04 Lipase 16 units/L (13-60) 11/04/16 14:04 Urine Color Yellow (Yellow) 11/04/16 19:02 Urine Turbidity Clear (Clear) 11/04/16 19:02 Urine pH 7.0 (5.0-7.0) 11/04/16 19:02 Ur Specific [place] 1.010 (1.003-1.030) 11/04/16 19:02 Urine Protein <15 mg/dl mg/dL (Negative) 11/04/16 19:02 Urine Glucose (UA) Neg mg/dL (Negative) 11/04/16 19:02 Urine Ketones Neg mg/dL (Negative) 11/04/16 19:02 Urine Blood Neg (Negative) 11/04/16 19:02 Urine Nitrite Neg (Negative) 11/04/16 19:02 Urine Bilirubin Neg (Negative) 11/04/16 19:02 Urine Urobilinogen < 2.0 mg/dL (<2.0) 11/04/16 19:02 Ur Leukocyte Esterase Lg (Negative) 11/04/16 19:02 Urine WBC (Auto) 7.0 /HPF (0.0-6.0) H 11/04/16 19:02 Urine RBC (Auto) 2.0 /HPF (0.0-6.0) 11/04/16 19:02 U Epithel Cells (Auto) 1.0 /HPF (0-13.0) 11/04/16 19:02 Urine Mucus Few /HPF 11/04/16 19:02 Blood Type O POSITIVE 11/04/16 21:05 Antibody Screen TNR 11/04/16 21:05 UZIEL Antibody Screen Negative 11/04/16 21:05 Crossmatch See Detail 11/04/16 21:05
--- NOTE | 2016-11-06 16:01 | Event Note ---
Date: 11/06/16 GI consultation was requested for persistent N/V. Patient was off the floor and could not be evaluated. Chart reviewed. Diabetic gastroparesis, PUD, partial GOO are in the differential diagnosis. May need endoscopy. Patient will be held NPO to keep options open until she can be formally evaluated tomorrow.
--- NOTE | 2016-11-06 16:38 | Ultrasound Report ---
Transvaginal and transabdominal pelvic ultrasound. History: Dysfunctional uterine bleeding. Findings: The uterus measures 12.5 x 6.6 x 8.8 cm. There are multiple hypoechoic uterine masses, the largest of which measures 2.6 cm in maximum dimension located in the body of the uterus. This appears to be submucosal. At least 3 additional smaller uterine masses are seen. The endometrial echo is thickened at 2.1 cm. The left ovary is not identified, but no adnexal masses are seen on the left. There is a 2.1 x 1.6 x 2.5 cm round complex region in the right ovary. No fluid is seen within the cul-de-sac. Impression: Multiple uterine fibroids in an enlarged uterus. 2. Complex cyst in the right ovary.
[2016-11-06] MEDS: REGLAN PO SCH ×2 (17:31→22:22)
[2016-11-07] MEDS: NACL 0.9% 1000 ML 1,000 ML IV SCH (06:31)
[2016-11-07] MEDS: NOVOLOG SUB-Q SCH ×4 (08:52→23:36)
[2016-11-07] MEDS: REGLAN PO SCH ×4 (08:52→23:16)
--- NOTE | 2016-11-07 10:41 | Discharge Summary ---
Providers - Providers Date of Admission: 11/04/16 23:00 Date of discharge: 11/07/16 Attending physician: GLADYS RUBIN 11/06/16 11:58 Consult to Physician [CONS] Routine Consulting Provider: JENNIFER MENDIOLA Reason For Exam: nausea,vomiting,GERD,Esophagitis Place consult to:: MAURY HUMPHRIES Notified:: Phone number called:: [phone] Was contact made?: Yes If yes, spoke with:: DUGLAS Time called:: 12:19 Primary care physician: REPRINT SORTER Hospitalization Condition: Fair Disposition: DISCHARGED TO HOME OR SELFCARE - Discharge Diagnoses (1) Menorrhagia Status: Acute Qualifiers: Menorrahagia type: M (2) Anemia due to chronic blood loss Status: Acute (3) Symptomatic anemia Status: Acute Core Measure Documentation - Palliative Care Palliative Care/ Comfort Measures: Not Applicable Exam - Constitutional Vitals: Temp Pulse Resp BP Pulse Ox 99.4 F 67 18 170/75 98 11/07/16 07:15 11/07/16 07:15 11/07/16 07:15 11/07/16 07:15 11/07/16 07:15 Plan Activity: no restrictions Diet: low fat, low cholesterol, low salt Additional Instructions: 1.Follow up with PCP in 1 week. 2.Follow up with Dr. Mendiola in 1 week for outpatient colonoscopy. 3.Follow up with [facility] to evaluate Fibroids. Follow up with: PRIMARY CAREMD [Primary Care Provider] - 3-5 Days Prescriptions: Ciprofloxacin HCl [Ciprofloxacin TAB] 500 mg PO BID #6 tablet Docusate Sodium [Colace] 100 mg PO BID #60 capsule Famotidine [Pepcid] 20 mg PO BID #60 tablet Ferrous Sulfate [Feosol 325 MG tab] 325 mg PO BID #60 tablet Pantoprazole [Protonix] 40 mg PO QDAY #30 tablet
[2016-11-07] MEDS: GLUCOTROL XL PO SCH (12:07)
[2016-11-07] MEDS: PROTONIX PO SCH (12:07)
[2016-11-07] MEDS ORDERED: APRESOLINE IV ONE (12:22)
[2016-11-07] MEDS: LEVAQUIN 500MG/100ML 500 MG/100 ML BAG IV SCH (12:28)
[2016-11-07] MEDS ORDERED: DIPRIVAN 10 MG/ML IV ONE ×2 (14:17)
--- NOTE | 2016-11-07 15:03 | Anesthesia Day of Surgery ---
Anesthesia Day of Surgery - Day of Surgery Patient Examined: Yes Patient H&P Reviewed: Yes Patient is NPO: Yes
--- NOTE | 2016-11-07 15:05 | Anesthesia Consultation ---
Anesthesia Consult and Med Hx - Airway Anesthetic Teeth Evaluation: Good ROM Head & Neck: Adequate Mental/Hyoid Distance: Adequate Mallampati Class: Class II Intubation Access Assessment: Probably Good - Pulmonary Exam CTA: Yes - Cardiac Exam Cardiac Exam: RRR - Pre-Operative Health Status ASA Pre-Surgery Classification: ASA2 Proposed Anesthetic Plan: General - Pulmonary Hx Smoking: No Hx Asthma: No COPD: No Hx Pneumonia: No Hx Sleep Apnea: No - Cardiovascular System Hx Hypertension: No (pt denies) - Central Nervous System Hx Psychiatric Problems: No - Endocrine Hx End Stage Renal Disease: No Hx Non-Insulin Dependent Diabetes: Yes - Hematic Hx Anemia: Yes (Symptomatic anemia (Acute) on this admission) - Other Systems Hx Cancer: No - Additional Comments Anesthesia Medical History Comments: NPO after MN. No prior anesthesia problems. Hx of menorrhagia and DM.
--- NOTE | 2016-11-07 15:07 | Gastroenterology Consultation ---
History of Present Illness - Reason for Consult Consult date: 11/07/16 N/V, anemia Requesting physician: GLADYS RUBIN - History of Present Illness The patient is a 51 yo female with a hx of DM, admitted with N/V that rapidly resolved. She was noted to be severely anemic without gross melena nor hematochezia. An EGD was negative in early 2014. However she is "not sure" if she has ever had a colonoscopy, even after the procedure was explained to her. She has a hx of menorrhagia (presumably from fibroids) and follows with [facility] for this. She has been chronically anemic. There has been no gastric surgery. Past History Past Medical History: diabetes, hypertension ((not treated, and not acknowledged by patient)) Past Surgical History: Social history: no significant social history Family history: no significant family history Medications and Allergies Allergies Allergy/AdvReac Type Severity Reaction Status Date / Time No Known Allergies Allergy Unverified 07/14/14 11:12 Home Medications Medication Instructions Recorded Confirmed Last Taken Type Metformin HCl [Glucophage] 1,000 mg PO BID 07/14/14 11/04/16 11/03/16 History glipiZIDE [glipiZIDE XL] 10 mg PO QDAY 07/14/14 11/04/16 11/03/16 History Ciprofloxacin HCl [Ciprofloxacin 500 mg PO BID #10 tablet 11/05/16 Unknown Rx TAB] Docusate Sodium [Colace] 100 mg PO BID #60 capsule 11/06/16 Unknown Rx Famotidine [Pepcid] 20 mg PO BID #60 tablet 11/06/16 Unknown Rx Ferrous Sulfate [Feosol 325 MG tab] 325 mg PO BID #60 tablet 11/06/16 Unknown Rx Pantoprazole [Protonix] 40 mg PO QDAY #30 tablet 11/06/16 Unknown Rx Active Meds: Active Medications Acetaminophen (Tylenol) 650 mg PO Q4H PRN PRN Reason: Pain MILD(1-3)/Fever >100.5/[place] Bisacodyl (Dulcolax) 10 mg [place] QDAY PRN PRN Reason: Constipation unrelieved by MOM Dextrose (D50w (25gm)) 50 ml IV PRN PRN PRN Reason: Hypoglycemia Glipizide (Glucotrol Xl) 10 mg PO QDAY SARMAD Last Admin: 11/07/16 12:07 Dose: Not Given Levofloxacin/Dextrose (Levaquin 500mg/100ml) 500 mg in 100 mls @ 100 mls/hr IV Q24HR [facility] PRN Reason: Protocol Last Admin: 11/07/16 12:28 Dose: 100 mls/hr Sodium Chloride (Nacl 0.9% 1000 Ml) 1,000 mls @ 75 mls/hr IV DIRECT [facility] Last Admin: 11/07/16 06:31 Dose: 75 mls/hr Insulin Aspart (Novolog) 0 units SUB-Q ACHS [facility] PRN Reason: Protocol Last Admin: 11/07/16 12:27 Dose: Not Given Magnesium Hydroxide (Milk Of Magnesia) 30 ml PO Q4H PRN PRN Reason: Constipation Metoclopramide HCl (Reglan) 5 mg PO ACHS [facility] Last Admin: 11/07/16 12:57 Dose: Not Given Morphine Sulfate (Morphine) 2 mg IV Q4H PRN PRN Reason: Pain, Moderate (4-6) Ondansetron HCl (Zofran) 4 mg IV Q8H PRN PRN Reason: N/V unrelieved by Reglan Last Admin: 11/06/16 10:19 Dose: 4 mg Pantoprazole Sodium (Protonix) 40 mg PO BID [facility] Last Admin: 11/07/16 12:07 Dose: Not Given Review of Systems - Review of Systems All systems: negative (as noted in the HPI.) Exam - Constitutional Vital Signs: Temp Pulse Resp BP Pulse Ox 99.4 F 60 18 170/91 98 11/07/16 07:15 11/07/16 12:57 11/07/16 07:15 11/07/16 12:57 11/07/16 07:15 General appearance: no acute distress - EENT Eyes: PERRL, EOM intact ENT: hearing intact, clear oral mucosa, no thrush - Neck Neck: supple, normal ROM - Respiratory Respiratory effort: normal Respiratory: bilateral: CTA - Cardiovascular Rhythm: regular Heart Sounds: Present: S1 & S2 Extremities: no ischemia, No edema - Gastrointestinal General gastrointestinal: Present: soft, non-tender, non-distended - Integumentary Integumentary: Present: clear, warm, dry - Neurologic Neurological: alert and oriented x3 - Labs CBC & Chem 7: 11/05/16 19:52 11/05/16 07:24 Lab Results: Laboratory Results - last 24 hr 11/06/16 11/06/16 11/07/16 16:27 21:34 06:23 POC Glucose 100 111 H 99 11/07/16 12:02 POC Glucose 99 Assessment and Plan - Patient Problems (1) Anemia due to chronic blood loss Current Visit: Yes Status: Acute Plan to address problem: - EGD to evaluate, given N/V (rule out gastric outlet obstruction). - Eventual colonoscopy (can do with Dr Alberts as an outpatient). - Avoid NSAIDs. - Continue f/u with DOG CATCHER for probable fibroids. (2) Nausea and vomiting Current Visit: Yes Status: Acute Qualifiers: Vomiting type: unspecified Vomiting Intractability: non-intractable Qualified Code(s): R11.2 - Nausea with vomiting, unspecified Plan to address problem: - Resolved, and likely due to DM. - Gastric emptying scan if no better.
--- NOTE | 2016-11-07 15:30 | Post Operative Note ---
Pre-op diagnosis: N/V Post-op diagnosis: other (Hiatal Hernia, gastritis/esophagitis) Findings: 1. Small Hiatal hernia 2. Mild gastritis/esophagitis, characterized by erythema; no erosions or ulcerations Procedure: EGD Anesthesia: MAC Surgeon: VERONICA FIGUEROA Estimated blood loss: none Pathology: none Specimen disposition: other (N/A) Condition: stable Disposition: floor (Recs: 1. Advance diet. 2. Tighter control of DM. 3. Protonix daily therapy. 4. F/U with Dr Alberts for an outpatient colonoscopy given age/anemia.)
[2016-11-07] MEDS ORDERED: WATER FOR IRRIG STERILE IR ONE (15:36)
[2016-11-07] MEDS ORDERED: ZOFRAN ONE (15:59)
[2016-11-07] MEDS ORDERED: NACL 0.9% 1000 ML 1,000 ML IV SCH (16:00)
[2016-11-07] MEDS ORDERED: ZOFRAN IV ONE (16:08)
--- NOTE | 2016-11-07 18:46 | Operative Report ---
PROCEDURE PERFORMED: Esophagogastroduodenoscopy. PREOPERATIVE DIAGNOSES: Nausea, vomiting and anemia. POSTOPERATIVE DIAGNOSES: Hiatal hernia as well as gastritis/esophagitis. ENDOSCOPIST: Higinio Jama MD INSTRUMENT: CodeEval video endoscope. MEDICATIONS: MAC anesthesia by [facility]. COMPLICATIONS: No apparent complications. ESTIMATED BLOOD LOSS: None. SPECIMENS: None. IMPLANTS: None. ASSISTANTS: None. CONDITION AT COMPLETION: Stable. TECHNIQUE: The patient was informed of the risks and benefits of the procedure. She signed the informed consent to proceed. She was placed in the left lateral decubitus position. The above sedative medications were given. Her vital signs remained stable throughout the procedure. The instrument was advanced from the mouth to the second portion of the duodenum under direct visualization. At that point, the bowel was insufflated and the endoscope was slowly withdrawn. FINDINGS: 1. No blood and no blood clots in the upper GI tract. 2. Small hiatal hernia. 3. Mild gastritis/esophagitis; this was characterized by erythema, likely due to recent nausea and vomiting as no erosions or ulcerations were seen. RECOMMENDATIONS: 1. Advance diet. 2. Tight control of diabetes. 3. Protonix daily therapy. 4. Follow up with Dr. Alberts for an outpatient colonoscopy given her age and anemia. JOB# [id number] MONSTER/NTS
[2016-11-07] MEDS: ZOFRAN IV PRN (19:54)
--- NOTE | 2016-11-07 22:17 | Progress Note ---
Assessment and Plan Assessment and plan: Acute gastroenteritis. Continue iv fluids. Morphine iv prn Nausea and Vomiting . EGD done today showed gastritis, esophagitis and hiatal herni. Anemia likely due to chronic blood loss from Menorrhagia. To see Gyne as outpatient.s/p 2 Units PRBC transfused, Hgb now 8.7 Uterine fibroids. Multiple. To follow with Gyne as outpatient. Menorrhagia. US pelvis, transvaginal shows multiple fibroids. UTI. Continue Levaquin iv Diabetes mellitus type 2. Fingerstick Qac and Discharge orders were put in for her to be discharged home however patient complained of abdominal pain, so did not go today. Most likely go home in the morning. - Patient Problems (1) Menorrhagia Status: Acute Qualifiers: Menorrahagia type: M (2) Anemia due to chronic blood loss Status: Acute (3) Symptomatic anemia Status: Acute History Interval history: Abdominal pain, still having nausea and vomiting, menorrhagia Hospitalist Physical - Physical exam Narrative exam: Gen appearance: Not in acute distress HEENT: Normocephalic, atraumatic Neck:supple, No JVD Lungs : Clear to auscultation bilaterally,no rales or wheezing Heart :S1-S2 regular, no murmurs, rubs or gallop Abdomen: soft, mild epigastric tender, non-distended,normal bowel sounds Extremities:no edema no clubbing or cyanosis, Neuro: Awake alert oriented 3, no focal neurologic signs - Constitutional Vitals: Temp Pulse Resp BP Pulse Ox 98.7 F 71 20 163/80 100 11/07/16 15:48 11/07/16 15:48 11/07/16 19:54 11/07/16 15:48 11/07/16 15:48 Results - Labs CBC & Chem 7: 11/05/16 19:52 11/05/16 07:24 Labs: Laboratory Last Values WBC 6.8 K/mm3 (4.5-11.0) 11/05/16 07:24 RBC 3.82 M/mm3 (3.65-5.03) 11/05/16 07:24 Hgb 8.7 gm/dl (10.1-14.3) L 11/05/16 19:52 Hct 27.7 % (30.3-42.9) L 11/05/16 19:52 MCV 69 fl (79-97) L D 11/05/16 07:24 MCH 22 pg (28-32) L 11/05/16 07:24 MCHC 32 % (30-34) 11/05/16 07:24 RDW 26.2 % (13.2-15.2) H 11/05/16 07:24 Plt Count 307 K/mm3 (140-440) 11/05/16 07:24 Add Manual Diff Complete 11/05/16 07:24 Total Counted 100 11/05/16 07:24 Seg Neuts % (Manual) 56.0 % (40.0-70.0) 11/05/16 07:24 Band Neutrophils % 0 % 11/05/16 07:24 Lymphocytes % (Manual) 38.0 % (13.4-35.0) H 11/05/16 07:24 Reactive Lymphs % (Man) 0 % 11/05/16 07:24 Monocytes % (Manual) 4.0 % (0.0-7.3) 11/05/16 07:24 Eosinophils % (Manual) 1.0 % (0.0-4.3) 11/05/16 07:24 Basophils % (Manual) 1.0 % (0.0-1.8) 11/05/16 07:24 Metamyelocytes % 0 % 11/05/16 07:24 Myelocytes % 0 % 11/05/16 07:24 Promyelocytes % 0 % 11/05/16 07:24 Blast Cells % 0 % 11/05/16 07:24 Nucleated RBC % Not Reportable 11/05/16 07:24 Seg Neutrophils # Man 3.8 K/mm3 (1.8-7.7) 11/05/16 07:24 Band Neutrophils # 0.0 K/mm3 11/05/16 07:24 Lymphocytes # (Manual) 2.6 K/mm3 (1.2-5.4) 11/05/16 07:24 Abs React Lymphs (Man) 0.0 K/mm3 11/05/16 07:24 Monocytes # (Manual) 0.3 K/mm3 (0.0-0.8) 11/05/16 07:24 Eosinophils # (Manual) 0.1 K/mm3 (0.0-0.4) 11/05/16 07:24 Basophils # (Manual) 0.1 K/mm3 (0.0-0.1) 11/05/16 07:24 Metamyelocytes # 0.0 K/mm3 11/05/16 07:24 Myelocytes # 0.0 K/mm3 11/05/16 07:24 Promyelocytes # 0.0 K/mm3 11/05/16 07:24 Blast Cells # 0.0 K/mm3 11/05/16 07:24 WBC Morphology Not Reportable 11/05/16 07:24 Hypersegmented Neuts Not Reportable 11/05/16 07:24 Hyposegmented Neuts Not Reportable 11/05/16 07:24 Hypogranular Neuts Not Reportable 11/05/16 07:24 Smudge Cells Not Reportable 11/05/16 07:24 Toxic Granulation Not Reportable 11/05/16 07:24 Toxic Vacuolation Not Reportable 11/05/16 07:24 Dohle Bodies Not Reportable 11/05/16 07:24 Pelger-Huet Anomaly Not Reportable 11/05/16 07:24 Harini Rods Not Reportable 11/05/16 07:24 Platelet Estimate Appears normal 11/05/16 07:24 Clumped Platelets Not Reportable 11/05/16 07:24 Plt Clumps, EDTA Not Reportable 11/05/16 07:24 Large Platelets Not Reportable 11/05/16 07:24 Giant Platelets Not Reportable 11/05/16 07:24 Platelet Satelliting Not Reportable 11/05/16 07:24 Plt Morphology Comment Not Reportable 11/05/16 07:24 RBC Morphology Not Reportable 11/05/16 07:24 Dimorphic RBCs Yes 11/05/16 07:24 Polychromasia Few 11/05/16 07:24 Hypochromasia 2+ 11/05/16 07:24 Poikilocytosis Not Reportable 11/05/16 07:24 Anisocytosis 2+ 11/05/16 07:24 Microcytosis 1+ 11/05/16 07:24 Macrocytosis Not Reportable 11/05/16 07:24 Spherocytes Not Reportable 11/05/16 07:24 Pappenheimer Bodies Not Reportable 11/05/16 07:24 Sickle Cells Not Reportable 11/05/16 07:24 Target Cells Not Reportable 11/05/16 07:24 Tear Drop Cells Few 11/05/16 07:24 Ovalocytes 1+ 11/05/16 07:24 Helmet Cells Not Reportable 11/05/16 07:24 [place] Bodies Not Reportable 11/05/16 07:24 [place] Rings Not Reportable 11/05/16 07:24 [place] Cells Not Reportable 11/05/16 07:24 Bite Cells Not Reportable 11/05/16 07:24 Crenated Cell Not Reportable 11/05/16 07:24 Elliptocytes Few 11/05/16 07:24 Acanthocytes (Spur) Not Reportable 11/05/16 07:24 Rouleaux Not Reportable 11/05/16 07:24 Hemoglobin C Crystals Not Reportable 11/05/16 07:24 Schistocytes Not Reportable 11/05/16 07:24 Malaria parasites Not Reportable 11/05/16 07:24 Adrian Bodies Not Reportable 11/05/16 07:24 Hem Pathologist Commnt No 11/05/16 07:24 Sodium 141 mmol/L (137-145) 11/05/16 07:24 Potassium 3.8 mmol/L (3.6-5.0) 11/05/16 07:24 Chloride 106.1 mmol/L (98-107) 11/05/16 07:24 Carbon Dioxide 23 mmol/L (22-30) 11/05/16 07:24 Anion Gap 16 mmol/L 11/05/16 07:24 BUN 5 mg/dL (7-17) L 11/05/16 07:24 Creatinine 0.5 mg/dL (0.7-1.2) L 11/05/16 07:24 Estimated GFR > 60 ml/min 11/05/16 07:24 BUN/Creatinine Ratio 10.00 % 11/05/16 07:24 Glucose 102 mg/dL (65-100) H 11/05/16 07:24 POC Glucose 88 (70-105) 11/07/16 21:40 Hemoglobin A1c 7.5 % (4-6) H 11/05/16 13:41 Calcium 8.7 mg/dL (8.4-10.2) 11/05/16 07:24 Iron 60 ug/dL (37-170) 11/05/16 13:41 TIBC 332 mcg/dL (250-450) 11/05/16 13:41 Ferritin 5.6 ng/mL (13.0-400.0) L 11/05/16 13:41 Total Bilirubin 0.30 mg/dL (0.1-1.2) 11/04/16 14:04 AST 12 units/L (5-40) 11/04/16 14:04 ALT 8 units/L (7-56) 11/04/16 14:04 Alkaline Phosphatase 52 units/L (35-129) 11/04/16 14:04 Troponin T < 0.010 ng/mL (0.00-0.029) 11/04/16 14:04 Total Protein 7.4 g/dL (6.3-8.2) 11/04/16 14:04 Albumin 3.9 g/dL (3.9-5) 11/04/16 14:04 Albumin/Globulin Ratio 1.1 % 11/04/16 14:04 Amylase 42 units/L (27-131) 11/04/16 14:04 Lipase 16 units/L (13-60) 11/04/16 14:04 Urine Color Yellow (Yellow) 11/04/16 19:02 Urine Turbidity Clear (Clear) 11/04/16 19:02 Urine pH 7.0 (5.0-7.0) 11/04/16 19:02 Ur Specific [place] 1.010 (1.003-1.030) 11/04/16 19:02 Urine Protein <15 mg/dl mg/dL (Negative) 11/04/16 19:02 Urine Glucose (UA) Neg mg/dL (Negative) 11/04/16 19:02 Urine Ketones Neg mg/dL (Negative) 11/04/16 19:02 Urine Blood Neg (Negative) 11/04/16 19:02 Urine Nitrite Neg (Negative) 11/04/16 19:02 Urine Bilirubin Neg (Negative) 11/04/16 19:02 Urine Urobilinogen < 2.0 mg/dL (<2.0) 11/04/16 19:02 Ur Leukocyte Esterase Lg (Negative) 11/04/16 19:02 Urine WBC (Auto) 7.0 /HPF (0.0-6.0) H 11/04/16 19:02 Urine RBC (Auto) 2.0 /HPF (0.0-6.0) 11/04/16 19:02 U Epithel Cells (Auto) 1.0 /HPF (0-13.0) 11/04/16 19:02 Urine Mucus Few /HPF 11/04/16 19:02 Blood Type O POSITIVE 11/04/16 21:05 Antibody Screen TNR 11/04/16 21:05 UZIEL Antibody Screen Negative 11/04/16 21:05 Crossmatch See Detail 11/04/16 21:05
[2016-11-07] MEDS: LIBRAX 5-2.5 MG PO SCH (23:17)
[2016-11-08 08:36] VITALS: BP 133/75
[2016-11-08] MEDS ORDERED: PROTONIX PO SCH (10:00)
[2016-11-08] MEDS: LIBRAX 5-2.5 MG PO SCH (10:04)
[2016-11-08] MEDS: GLUCOTROL XL PO SCH (10:04)
[2016-11-08] MEDS: REGLAN PO SCH (10:05)
[2016-11-08] MEDS: NOVOLOG SUB-Q SCH (10:05)
--- NOTE | 2016-11-08 10:21 | Event Note ---
Date: 11/08/16 Patient did not go home yesterday because of abdominal pain. She was seen and examined today. Going home today.
== END 2016-11-08 11:15 | disposition home or self-care (01) | DRG 392 ==
LOC: ED 13:35 → 3A 23:00
PROVIDERS: ADMIT Internal Medicine; ATTEND Internal Medicine
PROC: 0DJ08ZZ Inspection of Upper Intestinal Tract, Via Natural or Artificial Opening Endoscopic (ICD-10-PCS; principal; 2016-11-07)
PROC: 30233N1 Transfusion of Nonautologous Red Blood Cells into Peripheral Vein, Percutaneous Approach (ICD-10-PCS; 2016-11-07)
DX: K29.70 Gastritis, unspecified, without bleeding (principal); N39.0 Urinary tract infection, site not specified; N92.0 Excessive and frequent menstruation with regular cycle; K52.9 Noninfective gastroenteritis and colitis, unspecified; K20.9 Esophagitis, unspecified; D25.9 Leiomyoma of uterus, unspecified; I10 Essential (primary) hypertension; D50.0 Iron deficiency anemia secondary to blood loss (chronic); K44.9 Diaphragmatic hernia without obstruction or gangrene; E11.43 Type 2 diabetes mellitus with diabetic autonomic (poly)neuropathy; K31.84 Gastroparesis; Z82.49 Family history of ischemic heart disease and other diseases of the circulatory system; Z98.891 History of uterine scar from previous surgery
CPT/HCPCS: 36415; 74177; 76830; 76856; 80048; 80053; 81001; 82150; 82728; 82962; 83036; 83550; 83690; 84484; 85007; 85014; 85018; 85025; 86850; 86900; 86901; 86920; 87086; 93005; 93010; 96361; 96374; C9113; J0360; J1956; J2270; J2405; J2704; J7030; J7040; P9016; Q9967